=== PATIENT | male | born 1960 | race Caucasian/White ===

== ENCOUNTER 2021-03-09 13:47 | Inpatient (IN) | payer OTHER ==
[~2021-03-09] VITALS: Ht 177.8 cm; Wt 84.5 kg
[2021-03-09] MEDS ORDERED: ANGIOMAX 250 MG VIAL IV ONE (14:38)
[2021-03-09] MEDS ORDERED: HEPARIN SODIUM (PORCINE) 5000 UNITS/ML 1ML VIAL ONE (14:39)
[2021-03-09] MEDS ORDERED: MIDAZOLAM HCL 2MG/2ML 2ml VIAL (1mg/ml) ONE (14:39)
[2021-03-09] MEDS ORDERED: fentaNYL CITRATE 100 MCG/2 ML VL ONE (14:39)
[2021-03-09] MEDS ORDERED: VERAPAMIL 2.5MG/ML INJ 2ML VIAL IV ONE (14:39)
[2021-03-09] MEDS ORDERED: SODIUM CHL 0.9% 0 ML ONE (14:39)
[2021-03-09] MEDS ORDERED: IODIXANOL 320MG/ML 100ML BTL IV ONE (14:39)
[2021-03-09] MEDS ORDERED: LIDOCAINE 2%HCL (LOCAL ANESTH.) INJ 20ML MDV ONE (14:39)
[2021-03-09] MEDS ORDERED: MORPHINE SULFATE INJECTION 2 MG/ML SYRG IV PRN ×2 (15:30→19:15)
[2021-03-09] MEDS ORDERED: NITROGLYCERIN 0.4 MG SL TAB SL PRN (15:30)
[2021-03-09] MEDS ORDERED: SODIUM CHLORIDE 0.9% 1,000 ML IV ONE (15:30)
[2021-03-09] MEDS ORDERED: HYDROcodone-ACET 10/325MG TAB PO PRN ×2 (15:45→21:30)
[2021-03-09 15:46] LABS: BUN/Creatinine Ratio 19.7; Calcium 8.3 mg/dL (8.5-10.1); Potassium 4.1 mmol/L (3.5-5.1)
[2021-03-09] MEDS ORDERED: HYDR-4072 PO (15:48)
[2021-03-09] MEDS: SODIUM CHLORIDE 0.9% 1,000 ML IV SCH (16:35)
[2021-03-09 21:52] VITALS: BP 111/64
[2021-03-09] MEDS ORDERED: ZOLPIDEM TARTRATE 5 MG TAB PO ONE (22:00)
[2021-03-10] MEDS: SODIUM CHLORIDE 0.9% 1,000 ML IV SCH (00:28)
[2021-03-10 05:07] VITALS: BP 111/67
[2021-03-10 07:49] LABS: Basophils # (auto) 0 10 ^3/uL (0-0.2); Eosinophils # (auto) 0.1 10 ^3/uL (0-0.8); Hemoglobin 13.2 g/dL (13.5-17.5); Monocytes # (auto) 0.4 10 ^3/uL (0-1.3); Neutrophils # (auto) 2.7 10 ^3/uL (1.6-8.6)
[2021-03-10 07:52] LABS: Basophils % (auto) 0.5 % (0.0-2.0); Eosinophils % (auto) 1.8 % (0.0-7.0); Hematocrit 38.1 % (41.0-53.0); Lymphocytes % (auto) 24.5 % (10.0-50.0); Mean Corpuscular Hemoglobin 34.5 pg (28.0-32.0); Mean Corpuscular Hgb Conc. 34.7 g/dL (32.0-36.0); Mean Corpuscular Volume 99.5 fL (80.0-100.0); Neutrophils % (auto) 64.2 % (37.0-80.0); Nucleated Red Blood Cells % 0.2 %; Red Blood Cells 3.83 10^6/uL (4.5-5.90); Red Cell Distribution Width 12.3 % (11.8-14.3); White Blood Cell 4.2 10^3/uL (4.4-10.8)
[2021-03-10 07:58] LABS: Albumin 3.3 g/dL (3.4-5.0); Calcium 7.9 mg/dL (8.5-10.1); Potassium 4.4 mmol/L (3.5-5.1)
[2021-03-10 08:00] VITALS: BP 110/71
[2021-03-10 08:04] LABS: BUN/Creatinine Ratio 16.3; Bilirubin, Total 1.2 mg/dL (0.2-1.0); Total Protein 5.7 g/dL (6.4-8.2)
[2021-03-10 09:00] VITALS: BP 110/71
[2021-03-10 10:57] VITALS: BP 110/71
== END 2021-03-10 11:50 | disposition home or self-care (01) | DRG 287 ==
LOC: TELE 14:29 → TELE-WESTW 16:45
PROVIDERS: ADMIT Internal Medicine; ATTEND Internal Medicine
PROC: 4A023N7 Measurement of Cardiac Sampling and Pressure, Left Heart, Percutaneous Approach (ICD-10-PCS; principal; 2021-03-09)
PROC: B211YZZ Fluoroscopy of Multiple Coronary Arteries using Other Contrast (ICD-10-PCS; 2021-03-09)
PROC: B215YZZ Fluoroscopy of Left Heart using Other Contrast (ICD-10-PCS; 2021-03-09)
DX: R07.9 Chest pain, unspecified (principal); I10 Essential (primary) hypertension; G89.4 Chronic pain syndrome
CPT/HCPCS: 36415; 80048; 80053; 80061; 84443; 85025; 87081; 93458; 99152; G0378; J2250; Q9967